=== PATIENT | female | born 1950 | race Caucasian/White ===

== ENCOUNTER → 2017-09-16 | Outpatient (CLI) | payer BC, OTHER ==
[~2017-09-16] VITALS: Ht 152.4 cm; Wt 53.2 kg
[~2017-09-16] MED LIST: CHEWABLE-VITE1 EACH PO; OXYBUTYNIN CHLO10 MG PO; OXYBUTYNIN CHLOR5 MG PO; VIACTIV SOFT C1 EACH PO
[2017-09-16 09:05] VITALS: BP 133/77
== END | disposition home or self-care (01) ==
LOC: IVINF 09-07 10:00
DX: M85.80 Other specified disorders of bone density and structure, unspecified site (principal)
CPT/HCPCS: 96365; J3489